=== PATIENT | male | born 1950 | race Caucasian/White ===

== ENCOUNTER 2016-06-18 05:39 | Day surgery (SDC) | payer MEDICAID, MEDICARE, OTHER ==
[2016-06-18] MEDS ORDERED: Dextrose 5%-Lactated Ringers 1,000 ML IV SCH (06:30)
[2016-06-18] MEDS ORDERED: fentaNYL 100 MCG/2 ML SDV ONE (07:16)
[2016-06-18] MEDS ORDERED: Midazolam 1 MG/ML 2 ML SDV ONE (07:16)
[2016-06-18] MEDS ORDERED: Propofol 200 MG/20 ML SDV ONE (07:16)
[2016-06-18 08:26] VITALS: BP 127/86
--- NOTE | 2016-06-19 13:08 | OR ---
DATE OF PROCEDURE: 06/18/2016 PREOPERATIVE DIAGNOSIS: Gastroesophageal reflux disease. POSTOPERATIVE DIAGNOSES: 1. Moderate-sized hiatal hernia with gastroesophageal reflux disease and findings suggestive of Desir's esophagus. 2. Moderate antral gastritis and duodenitis. OPERATIVE PROCEDURE: Esophagogastroduodenoscopy with, 1. Biopsies of esophagogastric junction. 2. Biopsies of antrum for CLOtest. ANESTHESIA: IV sedation. INDICATIONS FOR PROCEDURE: This is a 65-year-old male with longstanding history suggestive of the gastroesophageal reflux disease and just recently has had increasing symptoms and started Prilosec 40 mg a day about a week ago. He is not sure whether there has been an improvement in his symptoms as of yet. The plan is to proceed with upper GI endoscopy with biopsies as indicated. Potential risks including bleeding and perforation were discussed, and the patient wishes to proceed. DETAILS OF PROCEDURE: The patient was taken to the operating room and placed in a left lateral decubitus position. IV sedation was administered, after which the upper GI endoscope was passed orally through the length of the esophagus into the stomach with retroflexion in the fundus, thereafter through the pyloric channel and into the proximal duodenum. The findings included a moderate-sized hiatal hernia measuring around 2 cm to 3 cm. There was considerable upward extension of the gastric type mucosa in a more fairly uniform pattern of 2 to 3 cm above the upper gastric folds. Within this, there were some remaining islands of squamous-type mucosa, the overall picture being suggestive of a high likelihood of Desir's esophagus being present. There was no packing or gross evidence of neoplasia and no stricturing at the EG junction. Within the stomach apart from the hiatal hernia, the proximal stomach was unremarkable. There was some moderate diffuse redness in the antrum and there was some patchy redness in the duodenal bulb. Beyond that, the duodenum was normal at the junction of the third and fourth portions. At this point, biopsies were obtained from the antrum and sent for CLOtest for H. pylori. Multiple biopsies were obtained in the area of the esophagogastric junction and sent for histologic evaluation. Minimal bleeding from the biopsy sites was seen and the procedure was then concluded. The patient was taken to the recovery room in satisfactory condition. PLAN: Plan will be to have the patient continue the current medical management. We will see him back in an about 2 weeks to see how he is doing and review the pathology findings. If he remains refractory to medical management, a good candidate for a fundoplication. Jorge Luis Méndez MD /[id number]
== END 2016-06-18 08:46 | disposition home or self-care (01) ==
LOC: JP.SDS 05:39
PROVIDERS: ATTEND Surgery
DX: K21.9 Gastro-esophageal reflux disease without esophagitis (principal); K29.50 Unspecified chronic gastritis without bleeding; K44.9 Diaphragmatic hernia without obstruction or gangrene; K29.80 Duodenitis without bleeding; I10 Essential (primary) hypertension; E78.00 Pure hypercholesterolemia, unspecified
CPT/HCPCS: 43239; 87081; J2250; J2704; J3010; J7042; 88305

== ENCOUNTER 2022-02-08 09:40 | Emergency (ER) | payer MEDICARE ==
[2022-02-08 10:05] VITALS: BP 122/80; PULSE 70
[2022-02-08] MEDS ORDERED: Ondansetron 4 MG Tab.DIS PO ONE (10:16)
[2022-02-08] MEDS ORDERED: methylPREDNISolone Sodium Succinate 125 MG/2 ML SDV IVPUSH ONE (11:02)
== END 2022-02-08 11:45 | disposition home or self-care (01) ==
LOC: EDBD 09:40 → JP.ED 09:40 → MERGE 09:40 → JP.ED 11:45
DX: R42 Dizziness and giddiness (principal); H81.21 Vestibular neuronitis, right ear
CPT/HCPCS: 70450; 96374; 99283; J2930; Q0162